=== PATIENT | male | born 1965 | race Two or more races ===

== ENCOUNTER 2018-07-10 12:41 | Outpatient (CLI) | payer BC | END 2018-07-10 13:13 | disposition home or self-care (01) | LOC: RAD 501 12:41 | DX: S90.01XA Contusion of right ankle, initial encounter (principal) ==

== ENCOUNTER 2018-09-18 10:47 | Emergency (ER) | payer BC ==
[~2018-09-18] VITALS: Ht 177.8 cm; Wt 104.3 kg
[2018-09-18] MEDS ORDERED: COZAAR100 MG PO (11:02)
[2018-09-18] MEDS ORDERED: VENTOLIN HFA18 GM (11:03)
[2018-09-18] MEDS ORDERED: AMLODIPINE BESY10 MG PO (11:03)
[2018-09-18] MEDS ORDERED: ADVAIR HFA 115/12 GM IH (11:03)
== END 2018-09-18 17:28 | disposition home or self-care (01) ==
LOC: ER 10:47
DX: J09.X2 Influenza due to identified novel influenza A virus with other respiratory manifestations (principal); J45.901 Unspecified asthma with (acute) exacerbation; B34.9 Viral infection, unspecified